=== PATIENT | female | born 1985 | race Caucasian/White ===

== ENCOUNTER 2017-04-20 06:57 | Emergency (ER) | payer SELFPAY ==
[2017-04-20 08:01] LABS: ABSOLUTE BASOPHILS # (AUTO) 0.1 10^3/uL (0.0-0.2); ABSOLUTE EOSINOPHILS # (AUTO) 0.1 10^3/uL (0.0-0.6); ABSOLUTE MONOCYTES (AUTO) 0.9 10^3/uL (0.1-1.4); ABSOLUTE NEUT (AUTO) 10.9 10^3/uL (1.7-8.2); BASOPHILS % (AUTO) 0.4 % (0-2); HEMATOCRIT 40.5 % (36.0-47.0); HEMOGLOBIN 13.9 g/dL (12.0-15.5); HGB HCT DIFFERENCE 1.2; LYMPHOCYTES % (AUTO) 13.9 % (13-45); MEAN CORPUSCULAR HEMOGLOBIN 31.5 pg (27.0-33.4); MEAN CORPUSCULAR HGB CONC 34.3 g/dL (32.0-36.0); MEAN CORPUSCULAR VOLUME 92 fl (80-97); MONOCYTES % (AUTO) 6.7 % (3-13); RED CELL DISTRIBUTION WIDTH 13.2 % (11.5-14.0)
[2017-04-20 08:13] LABS: ANION GAP 12 (5-19); BLOOD UREA NITROGEN 7 mg/dL (7-20); CALCIUM 9.7 mg/dL (8.4-10.2); CARBON DIOXIDE 21 mmol/L (22-30); CHLORIDE 106 mmol/L (98-107); CREATININE RESULT 0.69 mg/dL (0.52-1.25); GLUCOSE 100 mg/dL (75-110); SODIUM 139.3 mmol/L (137-145)
--- NOTE | 2017-04-20 10:33 | ER Document Report ---
ED GI/ - General Mode of Arrival: Ambulatory Information source: Patient TRAVEL OUTSIDE OF THE [place] IN LAST 30 DAYS: No - HPI Patient complains to provider of: Abdominal pain Associated symptoms: Other - see above <SAUNDRA MABRY - Last Filed: 04/20/17 13:45> <ZOILA CELESTE - Last Filed: 04/20/17 13:49> - General Chief Complaint: Diarrhea Stated Complaint: BLOODY STOOL Time Seen by Provider: 04/20/17 07:16 Notes: Patient is a 32 year old female who presents to the ED with complaints of loose stools that started out mucousy and then started being mixed with bright red blood. Patient states when she wipes there was pink tinged blood on the toilet paper and then there was blood in the toilet bowl. Patient states she had chills and while having a bowel movement she has excruciating pain. Patient has pain around her umbilicus and to the left. Patient feels like she is going to pass out during the bowel movement. Patient has no medical problems and is not on any daily medications. Patient took Immodium and her last bowel movement was approximately 45 min-1 hour [employer]. (SAUNDRA MABRY) - Related Data Allergies/Adverse Reactions: penicillin G [From Bicillin C-R] Allergy (Verified 04/20/17 07:00) penicillin G procaine [From Bicillin C-R] Allergy (Verified 04/20/17 07:00) pertussis vaccine,fluid Allergy (Verified 04/20/17 07:00) Past Medical History - General Information source: Patient - Social History Smoking Status: Never Smoker Chew tobacco use (# tins/day): No Frequency of alcohol use: Rare Drug Abuse: None Family History: Reviewed & Not Pertinent Patient has suicidal ideation: No Patient has homicidal ideation: No Renal/ Medical History: Denies: Hx Peritoneal Dialysis Past Surgical History: Reports: Hx Tonsillectomy <SAUNDRA MABRY - Last Filed: 04/20/17 13:45> Review of Systems - Review of Systems Constitutional: See HPI, Chills EENT: No symptoms reported Cardiovascular: See HPI, Lightheaded Respiratory: No symptoms reported Gastrointestinal: See HPI, Abdominal pain, Rectal bleeding Genitourinary: No symptoms reported Female Genitourinary: No symptoms reported Musculoskeletal: No symptoms reported Skin: No symptoms reported Hematologic/Lymphatic: No symptoms reported Neurological/Psychological: No symptoms reported <SAUNDRA MABRY - Last Filed: 04/20/17 13:45> Physical Exam - General General appearance: Appears well, Alert In distress: None - HEENT Head: Normocephalic, Atraumatic Eyes: Normal Extraocular movements intact: Yes Pupils: PERRL - Respiratory Respiratory status: No respiratory distress Breath sounds: Normal - Cardiovascular Rhythm: Regular Heart sounds: Normal auscultation Murmur: No - Abdominal Inspection: Normal Distension: No distension Bowel sounds: Normal Tenderness: Nontender - Rectal Tenderness: Yes - right at anal opening consistent with the possibility of having a fissure Hemorrhoids: None - Back Back: Normal - Extremities General upper extremity: Normal inspection, Normal ROM General lower extremity: Normal inspection, Normal ROM - Neurological Neuro grossly intact: Yes - Psychological Associated symptoms: Normal affect, Normal mood - Skin Skin Temperature: Warm Skin Moisture: Dry Skin Color: Normal <CLOTILDESAUNDRA - Last Filed: 04/20/17 13:45> - Vital signs Vitals: Temp Pulse Resp BP Pulse Ox 98.3 F 80 18 120/73 98 04/20/17 07:00 04/20/17 07:00 04/20/17 07:00 04/20/17 07:00 04/20/17 07:00 Course - Laboratory Result Diagrams: 04/20/17 07:45 04/20/17 07:45 <CLOTILDESAUNDRA - Last Filed: 04/20/17 13:45> - Laboratory Result Diagrams: 04/20/17 07:45 04/20/17 07:45 <ZOILA CELESTE - Last Filed: 04/20/17 13:49> - Re-evaluation Re-evalutation: 04/20/17 10:42 Patient presents emergency department with a chief complaint of loose stools with blood in it. Patient states that Friday afternoon she started having some loose stool liquid mucousy 3:00 later that day she started having multiple episodes of mucousy stool with blood tinged in it. She wiped it last night so it was pink she said it hurts really bad when she goes to have a bowel movement. She vehemently denies any history of Crohn's disease ulcerative colitis or irritable bowel disease has no known history of rectal or anal problems previously has had some hemorrhoids in the past but denies any currently. She said she does not generally get constipated or reported a history of significant straining. On examination well-appearing nontoxic no acute distress abdomen is soft no tenderness guarding rebound rigidity on rectal examination she has no signs of active external hemorrhoids but she has tenderness right at the anal opening consistent with the possibility of having a fissure. I did not feel any internal hemorrhoids. Patient is going to be discharged she is negative for C. difficile stool cultures are pending given her family doctor for follow-up Anusol suppositories and discussed reasons for ED return sooner (ZOILA CELESTE) - Vital Signs Vital signs: Temp Pulse Resp BP Pulse Ox 98.2 F 68 17 111/70 98 04/20/17 10:48 04/20/17 10:48 04/20/17 10:48 04/20/17 10:48 04/20/17 10:48 - Laboratory Laboratory results interpreted by me: 04/20/17 04/20/17 07:45 07:45 WBC 14.0 H Absolute Neutrophils 10.9 H Carbon Dioxide 21 L Discharge <SAUNDRA MABRY - Last Filed: 04/20/17 13:45> <ZOILA CELESTE - Last Filed: 04/20/17 13:49> - Discharge Clinical Impression: Bloody diarrhea Condition: Stable Disposition: HOME, SELF-CARE Additional Instructions: Diarrhea Diarrhea means frequent, watery stools. There are many causes. Any problem that keeps the intestinal tract from absorbing water from the stool can lead to diarrhea. A sudden new diarrhea problem is usually caused by a virus, food sensitivity, toxic bacteria, or drugs. In this case, we expect the problem to go away soon. Testing is done only if you seem seriously ill from the diarrhea. If you have chronic diarrhea, or diarrhea that keeps coming back, we need to find out why. Chronic diarrhea can be due to inflammation of the bowels such as Crohn's disease or ulcerative colitis, food sensitivity such as intolerance to lactose or wheat protein, irritable bowel syndrome, and other problems. If your diarrhea is a significant problem but it's not clear why you have it, we' ll refer you to a specialist for further testing. During an episode of diarrhea, drink small amounts (two to six ounces) of clear liquids (soft drinks, sport drinks, herb teas, broth, etc). Take fluids frequently to prevent dehydration. It's usually not a problem to take mild anti- diarrhea medication such as Kaopectate or Pepto-Bismol. As the diarrhea eases, advance to small amounts of bland food (mashed potato, toast) for 24 hours. Call the physician if blood appears in your vomit or stool, if vomiting lasts longer than 24 hours, if the abdominal pain worsens or becomes localized to one area, if you develop high fever, or if you become lightheaded and weak. Prescriptions: Hydrocortisone Acetate [Anusol Hc 25 mg Supp.rect] 1 supp.rect [place] BID #[id number] supp.rect Referrals: [facility] [Provider Group] (In 2-3 days return for increased worsening or new symptoms) Josias Attestation: 04/20/17 10:38 I personally performed the services described in the documentation reviewed the documentation recorded by my scribe in my presence and it accurately and completely records my words and actions (ZOILA CELESTE) [place] Documentation - Scribe Written by Josias:: josias Pompa, 04/20/2017, 1211 acting as scribe for :: Yakov <SAUNDRA MABRY - Last Filed: 04/20/17 13:45>
[2017-04-20 10:54] VITALS: BP 111/70
== END 2017-04-20 10:54 | disposition home or self-care (01) ==
LOC: ER 06:57
DX: K92.1 Melena (principal); R19.7 Diarrhea, unspecified; R10.9 Unspecified abdominal pain; R68.83 Chills (without fever); R42 Dizziness and giddiness; Z88.7 Allergy status to serum and vaccine; Z88.0 Allergy status to penicillin
CPT/HCPCS: 36415; 80048; 85025; 87045; 87205; 87493; 99284